=== PATIENT | female | born 1940 | race Caucasian/White ===

== ENCOUNTER 2016-08-30 08:55 | Inpatient (IN) | payer MEDICARE ==
[2016-08-30] VITALS (17 sets, daily range): BP systolic 81–132; BP diastolic 38–85; PULSE 82–116; RESP 18–24; TEMP 97.2–98.9; O2SAT 95–100
[~2016-08-30] VITALS: Ht 154.9 cm; Wt 104.7 kg
[~2016-08-30 08:55] MED LIST: CIPR500T4 PO
[2016-08-30] MEDS ORDERED: SODIUM CHLOR 0.9% 1000 ML INJ 1,000 ML IV SCH (09:07)
[2016-08-30] MEDS ORDERED: SODIUM CHLORIDE 0.9% FLUSH 5 ML FLUSH IVF PRN (09:15)
[2016-08-30] MEDS ORDERED: PANTOPRAZOLE INJ 80 MG in SODIUM CHLORIDE 0.9% INJ 35 ML IV ONE (09:15)
[2016-08-30] MEDS ORDERED: SODIUM CHLOR 0.9% 1000 ML INJ 1,000 ML IV ONE (09:15)
--- NOTE | 2016-08-30 09:22 | PD ---
HPI . Black tarry stools Chief Complaint: GI Complaint Time Seen by Provider: 09:07 Travel History International Travel<30 days: No Contact w/Intl Traveler<30days: No Traveled to known affect area: No History of Present Illness HPI Patient presents with the chief complaint of black tarry stools. She states that she had one black tarry stool couple days ago. She had no further abnormal bowel movements for the next day or so. However, she has been feeling weak. She does report some abdominal pain which has subsequently resolved. She reports about 3 black tarry stools today area she feels very weak. She has not had any vomiting/hematemesis. She denies any previous similar episode. She states that she does not take any prescription medications. Specifically, she is not on an anticoagulant. She does take Aleve as needed for knee pain. PFSH Past Medical History Hx Anticoagulant Therapy: Yes (aleve for knee pain) Diminished Hearing: No Immunizations Current: No Influenza Vaccination: No Menopausal: Yes Past Surgical History Abdominal Surgery: Yes (polyp removal November 2015) Tonsillectomy: Yes Social History Alcohol Use: No Tobacco Use: No Substance Use: No Allergies-Medications (Allergen,Severity, Reaction): Coded Allergies: No Known Allergies (Unverified , 08/30/16) Reported Meds & Prescriptions Reported Meds & Active Scripts Active No Active Prescriptions or Reported Medications Review of Systems Except as stated in HPI: all other systems reviewed are Neg General / Constitutional: No: Fever, Chills Gastrointestinal: Positive: Abdominal Pain, Other (dark tarry stools), No: Nausea, Vomiting, Diarrhea Neurologic: Positive: Weakness Physical Exam Narrative GENERAL: Patient is pale with a resting heart rate of 120 and blood pressure of 83/60 SKIN: Warm and dry. The perianal area is stained with black tarry fecal matter. HEAD: Atraumatic. Normocephalic. EYES: Pupils equal and round. Conjunctiva pale ENT: No nasal bleeding or discharge. Mucous membranes pale and moist. NECK: Trachea midline. Neck is supple. CARDIOVASCULAR: Regular rate and rhythm. Sinus tachycardia. RESPIRATORY: No accessory muscle use. GASTROINTESTINAL: Abdomen soft, non-tender, nondistended. MUSCULOSKELETAL: No obvious deformities. No edema. NEUROLOGICAL: Awake and alert. No obvious cranial nerve deficits. Motor grossly within normal limits. Normal speech. PSYCHIATRIC: Appropriate mood and affect; insight and judgment normal. Data Data Last Documented VS Vital Signs Date Time Temp Pulse Resp B/P Pulse Ox O2 Delivery O2 Flow Rate FiO2 08/30/16 09:56 104 20 103/47 100 08/30/16 09:31 Nasal Cannula 2 08/30/16 09:00 98.3 Orders Complete Blood Count With Diff (08/30/16 09:07) Comprehensive Metabolic Panel (08/30/16 09:07) Prothrombin Time / Inr (Pt) (08/30/16 09:07) Act Partial Throm Time (Ptt) (08/30/16 09:07) Type And Screen (08/30/16 09:07) Ecg Monitoring (08/30/16 09:07) Iv Access Insert/Monitor (08/30/16 09:07) Oximetry (08/30/16 09:07) Oxygen Administration (08/30/16 09:07) Sodium Chlor 0.9% 1000 Ml Inj (Ns 1000 M (08/30/16 09:07) Pantoprazole Inj (Protonix Inj) (08/30/16 09:15) Sodium Chlor 0.9% 1000 Ml Inj (Ns 1000 M (08/30/16 09:15) Red Blood Cells (Rbc) (08/30/16 10:07) Blood Product Administration .UPON TRANSFUSION (08/30/16 10:07) Sodium Chlor 0.9% 250 Ml Inj (Ns 250 Ml (08/30/16 10:15) Diphenhydramine Inj (Benadryl Inj) (08/30/16 10:15) Acetaminophen (Tylenol) (08/30/16 10:15) Admit To Inpatient (08/30/16 ) Vital Signs (Adult) Q4H (08/30/16 10:06) Activity Oob Ad Therese (08/30/16 10:06) Intake + Output DREW.QSHIFT (08/30/16 10:06) Diet Liquid (08/30/16 Lunch) Sodium Chloride 0.9% Flush (Ns Flush) (08/30/16 10:15) Sodium Chloride 0.9% Flush (Ns Flush) (08/30/16 21:00) Sodium Chlor 0.9% 1000 Ml Inj (Ns 1000 M (08/30/16 10:06) Pantoprazole Inj (Protonix Inj) (08/30/16 12:00) Hgb & Hct (08/30/16 10:06) Hgb & Hct (08/30/16 16:06) Hgb & Hct (08/30/16 22:06) Hgb & Hct (08/31/16 04:06) Hgb & Hct (08/31/16 10:06) Hgb & Hct (08/31/16 16:06) Hgb & Hct (08/31/16 22:06) Inpatient Certification (08/30/16 ) Acetaminophen (Tylenol) (08/30/16 10:15) Ondansetron Inj (Zofran Inj) (08/30/16 10:15) Basic Metabolic Panel (Bmp) (08/31/16 06:00) Pt Request For Service (08/30/16 10:06) Scd Bilateral/Knee High DREW.BID (08/30/16 10:06) Naloxone Inj (Narcan Inj) (08/30/16 10:15) Labs Laboratory Tests Test 08/30/16 09:05 White Blood Count 13.6 TH/MM3 Red Blood Count 3.43 MIL/MM3 Hemoglobin 8.9 GM/DL Hematocrit 26.9 % Mean Corpuscular Volume 78.4 FL Mean Corpuscular Hemoglobin 25.8 PG Mean Corpuscular Hemoglobin 32.9 % Concent Red Cell Distribution Width 14.5 % Platelet Count 281 TH/MM3 Mean Platelet Volume 9.8 FL Neutrophils (%) (Auto) 77.3 % Lymphocytes (%) (Auto) 18.3 % Monocytes (%) (Auto) 3.9 % Eosinophils (%) (Auto) 0.2 % Basophils (%) (Auto) 0.3 % Neutrophils # (Auto) 10.6 TH/MM3 Lymphocytes # (Auto) 2.5 TH/MM3 Monocytes # (Auto) 0.5 TH/MM3 Eosinophils # (Auto) 0.0 TH/MM3 Basophils # (Auto) 0.0 TH/MM3 CBC Comment DIFF FINAL Differential Comment Prothrombin Time 11.5 SEC Prothromb Time International 1.0 RATIO Ratio Activated Partial 23.8 SEC Thromboplast Time Sodium Level 141 MEQ/L Potassium Level 5.0 MEQ/L Chloride Level 108 MEQ/L Carbon Dioxide Level 22.7 MEQ/L Anion Gap 10 MEQ/L Blood Urea Nitrogen 84 MG/DL Creatinine 1.10 MG/DL Estimat Glomerular Filtration 48 ML/MIN Rate Random Glucose 254 MG/DL Calcium Level 7.5 MG/DL Total Bilirubin 0.3 MG/DL Aspartate Amino Transf 9 U/L (AST/SGOT) Alanine Aminotransferase 16 U/L (ALT/SGPT) Alkaline Phosphatase 67 U/L Total Protein 5.6 GM/DL Albumin 2.8 GM/DL MDM Medical Decision Making Medical Screen Exam Complete: Yes Emergency Medical Condition: Yes Medical Record Reviewed: Yes (the patient's only visit with us was for postmenopausal vaginal bleeding. The patient reports that she did follow up as an outpatient for this problem. She states that she was found to have a benign polyp which was removed in the office.) Differential Diagnosis Differential diagnosis of weakness includes but is not limited to infection, CVA , electrolyte disturbance, renal failure, hypoglycemia, UTI, ACS, acute blood loss Narrative Course Patient presents to us via [facility] with the chief complaint of weakness and dark tarry stools. The patient is pale with an initial heart rate of about 120 and blood pressure of 83/60. I have ordered a fluid bolus 2 L, Protonix drip, type and screen, CBC and comp metabolic panel. CBC & BMP Diagram 08/30/16 09:05 Previous hemoglobin was 11. Critical Care Narrative Aggregate critical care time was 40 minutes. Time to perform other separately billable procedures was not included in the critical care time. My time did not include minutes spent treating any other patients simultaneously or on activities that did not directly contribute to the patient's treatment. The services I provided to this patient were to treat and/or prevent clinically significant deterioration due to GI bleed with hemorrhagic shock. I provided critical care services requiring my management, as noted below: Chart data review, documentation time, medication orders and management, vital sign assessments/reviewing monitor data, ordering and reviewing lab tests, ordering and interpreting/reviewing x-rays and diagnostic studies, care of the patient and discussion of the patient with the admitting physicians HemaPrompt Point of Care Internal Pos. & Neg. Controls: Passed Fecal Specimen Occult Blood: Positive Physician Communication Physician Communication Dr. Gomez requests that I go ahead and transfuse her 2 units because of symptomatic bleeding (tachycardia/hypotension). She also asks that I contact GI regarding where to admit her (here or at [facility]). Dr. Olivera asked that I send the patient to [facility] and consult Dr. Eller there. Diagnosis Primary Impression: Lower GI bleeding Admitting Information Admitting Physician Requests: Admit Scripts No Active Prescriptions or Reported Meds Condition: Radha Lange MD Aug 30, 2016 09:22
[2016-08-30 09:24] LABS: AUTOMATED NEUTROPHIL # 10.6 TH/MM3 (1.8-7.7); BASOPHIL % 0.3 % (0.0-2.0); EOSINOPHIL % 0.2 % (0.0-4.0); HEMATOCRIT 26.9 % (35.0-46.0); HEMO FLAGS DIFF FINAL; LYMPH % 18.3 % (9.0-44.0); LYMPHOCYTE # 2.5 TH/MM3 (1.0-4.8); MEAN CELL VOLUME 78.4 FL (80.0-100.0); MEAN CORPUSCULAR HEMOGLOBIN 25.8 PG (27.0-34.0); MEAN CORPUSCULAR HGB CONC 32.9 % (32.0-36.0); MONO % 3.9 % (0.0-8.0); NEUT % 77.3 % (16.0-70.0); PLATELET COUNT 281 TH/MM3 (150-450); RED BLOOD COUNT 3.43 MIL/MM3 (4.00-5.30); RED CELL DISTRIBUTION WIDTH 14.5 % (11.6-17.2); WHITE BLOOD COUNT 13.6 TH/MM3 (4.0-11.0)
[2016-08-30 09:50] LABS: APTT (PATIENT) 23.8 SEC (24.3-30.1); BICARBONATE 22.7 MEQ/L (21.0-32.0); PROTHROMBIN TIME - PATIENT 11.5 SEC (9.8-11.6)
[2016-08-30 09:51] LABS: BLOOD UREA NITROGEN 84 MG/DL (7-18)
[2016-08-30 09:54] LABS: ALT (GPT) 16 U/L (10-53); AST (GOT) 9 U/L (15-37); GLOMERULAR FILTRATION RATE 48 ML/MIN (>89)
[2016-08-30 09:55] LABS: TOTAL BILIRUBIN ADULT 0.3 MG/DL (0.2-1.0)
[2016-08-30 09:56] LABS: ALKALINE PHOSPHATASE 67 U/L (45-117)
[2016-08-30 09:57] LABS: ANION GAP 10 MEQ/L (5-15); CHLORIDE 108 MEQ/L (98-107); SODIUM (NA) 141 MEQ/L (136-145)
[2016-08-30] MEDS ORDERED: ACETAMINOPHEN 325 MG TAB PO PRN (10:15)
[2016-08-30] MEDS ORDERED: ACETAMINOPHEN 325 MG TAB PO ONE (10:15)
[2016-08-30] MEDS ORDERED: SODIUM CHLORIDE 0.9% FLUSH 5 ML FLUSH FLUSH PRN (10:15)
[2016-08-30] MEDS ORDERED: SODIUM CHLOR 0.9% 250 ML INJ 250 ML IV ONE (10:15)
[2016-08-30] MEDS ORDERED: NALOXONE HCL 0.4 MG/ML AMP IV PRN (10:15)
[2016-08-30] MEDS ORDERED: diphenhydrAMINE HCL 50 MG/ML VIAL IV ONE (10:15)
[2016-08-30] MEDS ORDERED: ONDANSETRON HCL 4 MG/2 ML VIAL IVP PRN (10:15)
[2016-08-30 10:52] LABS: HEMATOCRIT 24.3 % (35.0-46.0); REVIEW FLAG FINAL
[2016-08-30] MEDS: SODIUM CHLOR 0.9% 1000 ML INJ 1,000 ML IV SCH ×2 (11:51→21:00)
[2016-08-30] MEDS: PANTOPRAZOLE INJ 80 MG in SODIUM CHLORIDE 0.9% INJ 100 ML IV SCH ×2 (11:55→22:00)
--- NOTE | 2016-08-30 12:35 | HHI.HP ---
[facility] Service [facility] Primary Care Physician No Primary Care Physician Admission Diagnosis lower GI bleed Diagnoses: Travel History International Travel<30 Days: No Contact w/Intl Traveler <30 Da: No Traveled to Known Affected Are: No History of Present Illness This is a pleasant 75-year-old female who does not follow with any physician with a [id number] history of tobacco use who presents to the ER with a three-day history of dark melanotic stools. The patient presented to the hospital today because she was feeling dizzy, and lightheaded. Alleviating factors include lying down. Provocative factors included standing up would make the dizziness worse. She states that today she had 3 dark tarry stools. Last night she vomited multiple times and it was dark liquid. She denies abdominal pain, weight loss, change in the caliber of her stools. She has chronic diarrhea. The patient denies any history of GI bleeding. She does take an Aleve daily for right knee pain. The patient has never had a colonoscopy. She has anxiety and does not see physicians because of this. In the ER she was initially hypotensive and tachycardic. She received 2 L normal saline IV bolus with improvement of vital signs. Hemoglobin is 7.9, because of the ongoing bleeding we are transfusing her 2 units packed red blood cells. The ER physician spoke with gastroenterology who was like the patient transferred to the main hospital to undergo endoscopy. The patient has also been started on a Protonix drip. The patient is apprehensive about undergoing endoscopy but is reassured that she will be provided with sedation. Review of Systems Constitutional: COMPLAINS OF: Dizziness, DENIES: Weight loss, Chills Endocrine: DENIES: Polydipsia, Polyuria Eyes: DENIES: Eye pain, Vision loss Ears, nose, mouth, throat: COMPLAINS OF: Hoarseness (chronic from smoking), DENIES: Odynophagia Respiratory: DENIES: Cough, Shortness of breath Cardiovascular: DENIES: Chest pain, Syncope Gastrointestinal: COMPLAINS OF: Black stools, Diarrhea (the patient states she has chronic diarrhea), Nausea, Vomiting, DENIES: Abdominal pain, Difficulty Swallowing Genitourinary: COMPLAINS OF: Urinary incontinence (chronic) Musculoskeletal: COMPLAINS OF: Joint pain (chronic right knee pain for which she refuses to consider surgery) Integumentary: DENIES: Rash, Breast masses Hematologic/lymphatic: DENIES: Lymphadenopathy Neurologic: DENIES: Abnormal gait, Localized weakness Psychiatric: COMPLAINS OF: Anxiety, DENIES: Confusion Past Family Social History Past Medical History Osteoarthritis of the right knee Chronic urinary incontinence Chronic pedal edema 60 pack year history of tobacco quit 5 years ago Past Surgical History None other than a polyp removal from her uterus Reported Medications Aleve daily Allergies: Coded Allergies: No Known Allergies (Unverified , 08/30/16) Family History Both of her parents and coronary artery disease and myocardial infarction Social History As per history of present illness. She is . No alcohol or drug use. Physical Exam Vital Signs Vital Signs Date Time Temp Pulse Resp B/P Pulse Ox O2 Delivery O2 Flow Rate FiO2 08/30/16 11:56 99 20 132/60 100 Nasal Cannula 2 08/30/16 11:06 95 18 111/70 95 Nasal Cannula 2 08/30/16 09:56 104 20 103/47 100 08/30/16 09:31 Nasal Cannula 2 08/30/16 09:14 97 08/30/16 09:00 98.3 116 20 90/60 97 Physical Exam GENERAL: Well-nourished, well-developed very pleasant elderly obese female patient. SKIN: Warm and dry. HEAD: Normocephalic. EYES: No scleral icterus. No injection or drainage. NECK: Supple, trachea midline. No JVD or lymphadenopathy. CARDIOVASCULAR: Regular rate and rhythm without murmurs, gallops, or rubs. RESPIRATORY: Breath sounds equal and clear to auscultation bilaterally. No accessory muscle use. GASTROINTESTINAL: Abdomen soft, non-tender, nondistended. EXTREMITIES: Trace to 1+ pitting pedal edema bilaterally of the ankles left slightly more than right. NEUROLOGICAL: Awake, alert, and oriented x 3. Non-focal. Hoarse voice noted. Laboratory Laboratory Tests Test 08/30/16 08/30/16 08/30/16 09:05 10:07 10:45 White Blood Count 13.6 Red Blood Count 3.43 Hemoglobin 8.9 7.9 Hematocrit 26.9 24.3 Mean Corpuscular Volume 78.4 Mean Corpuscular Hemoglobin 25.8 Mean Corpuscular Hemoglobin 32.9 Concent Red Cell Distribution Width 14.5 Platelet Count 281 Mean Platelet Volume 9.8 Neutrophils (%) (Auto) 77.3 Lymphocytes (%) (Auto) 18.3 Monocytes (%) (Auto) 3.9 Eosinophils (%) (Auto) 0.2 Basophils (%) (Auto) 0.3 Neutrophils # (Auto) 10.6 Lymphocytes # (Auto) 2.5 Monocytes # (Auto) 0.5 Eosinophils # (Auto) 0.0 Basophils # (Auto) 0.0 CBC Comment DIFF FINAL Differential Comment Prothrombin Time 11.5 Prothromb Time International 1.0 Ratio Activated Partial 23.8 Thromboplast Time Sodium Level 141 Potassium Level 5.0 Chloride Level 108 Carbon Dioxide Level 22.7 Anion Gap 10 Blood Urea Nitrogen 84 Creatinine 1.10 Estimat Glomerular Filtration 48 Rate Random Glucose 254 Calcium Level 7.5 Total Bilirubin 0.3 Aspartate Amino Transf 9 (AST/SGOT) Alanine Aminotransferase 16 (ALT/SGPT) Alkaline Phosphatase 67 Total Protein 5.6 Albumin 2.8 Blood Type B POSITIVE B POSITIVE Antibody Screen NEGATIVE Blood Bank Comment Crossmatch Leukocyte-Reduced Red Blood Cells Result Diagram: 08/30/16 1045 08/30/16 0905 Assessment and Plan Problem List: (1) GI bleed ICD Code: K92.2 Status: Acute (2) Anemia associated with acute blood loss ICD Code: D62 Status: Acute (3) CL (acute kidney injury) ICD Code: N17.9 Status: Acute (4) Hypotension due to blood loss ICD Code: I95.89 Status: Acute (5) Anxiety ICD Code: F41.9 Status: Acute (6) Tobacco abuse, 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 GI is consulted and plans endoscopy. -Hypertension and tachycardia secondary to the acute GI bleed. Improved with IV fluid resuscitation. We will transfuse 2 units packed blood bus also above and continue normal saline at a rate of 100 mL per hour. Clear liquid diet for now. I will obtain a preprocedure EKG. -Hyperglycemia. The patient does not follow with primary care physician regularly. She may have diabetes. Will start Accu-Cheks and obtain a hemoglobin A1c. -Osteoarthritis of the right knee - Tylenol as needed for pain. Advised patient she will likely need to stop taking Aleve. -Chronic urinary incontinence -Chronic pedal edema - apply ROSALINDA perdomo and SCDs. -60 pack year history of tobacco quit 5 years ago -Mild acute kidney injury secondary to volume depletion. We'll continue with IV fluids as above and repeat a BMP in the morning. -We'll consult case management to assist the patient in finding a primary care physician. I explained the importance of preventive care to the patient as well as establishing with a PCP. -DVT prophylaxis with SCDs. Discussed Condition With ED physician. Patient and her at bedside. Milana Gomez MD Aug 30, 2016 12:35
[2016-08-30 17:31] LABS: HEMATOCRIT 30.6 % (35.0-46.0); REVIEW FLAG FINAL
[2016-08-30] MEDS: SODIUM CHLORIDE 0.9% FLUSH 5 ML FLUSH FLUSH SCH (21:00)
[2016-08-30 23:27] LABS: HEMATOCRIT 28.4 % (35.0-46.0); REVIEW FLAG FINAL
[2016-08-31] VITALS (7 sets, daily range): BP systolic 96–120; BP diastolic 54–68; PULSE 70–90; RESP 18–22; TEMP 97.1–98.8; O2SAT 94–99
[2016-08-31 05:51] LABS: HEMATOCRIT 27.1 % (35.0-46.0); REVIEW FLAG FINAL
[2016-08-31 06:07] LABS: BICARBONATE 26.1 MEQ/L (21.0-32.0); POTASSIUM 4.1 MEQ/L (3.5-5.1)
[2016-08-31] MEDS: SODIUM CHLOR 0.9% 1000 ML INJ 1,000 ML IV SCH (06:07)
[2016-08-31] MEDS: PANTOPRAZOLE INJ 80 MG in SODIUM CHLORIDE 0.9% INJ 100 ML IV SCH (08:00)
[2016-08-31] MEDS: SODIUM CHLORIDE 0.9% FLUSH 5 ML FLUSH FLUSH SCH ×2 (08:06→20:24)
--- NOTE | 2016-08-31 08:35 | PD.CONS ---
HPI History of Present Illness This is a 75 year old female who came to the emergency room for evaluation of black tarry stools. She reports that her symptoms began about 2 days ago. She was in her normal state of health and then started having black tarry stools with several bowel movements per day. There were no aggravating or alleviating factors. She denies any associated nausea, vomiting, abdominal pain, heartburn , reflux, decreased appetite, weight loss, constipation, or red blood in her stools. She does have a history of chronic knee pain for which she takes Aleve 2 pills per day for many years. She occasionally drinks alcohol and reports that she did have a glass the night that the bleeding started. She denies any history of peptic ulcer disease and has never been evaluated with an EGD or colonoscopy. She denies any family history of esophageal, gastric, colorectal cancer. (Meena Fernández) PFSH Past Medical History Osteoarthritis of the right knee Chronic urinary incontinence Chronic pedal edema Past Surgical History Procedure to remove polyp from uterus (Meena Fernández) Coded Allergies: No Known Allergies (Unverified , 08/30/16) Medications Allergies Coded Allergies Type Severity Reaction Last Updated Verified No Known Allergies 08/30/16 No Active Scripts Medications Dose Route/Sig Days Date Category No Active Prescriptions or Reported Medications Rx Aleve 2 pills per day Family History Both parents from coronary artery disease Social History [id number] smoking history, quit 5 years ago Occasional alcohol use (Meena Fernández) Review of Systems Constitutional: COMPLAINS OF: Fatigue, DENIES: Fever, Chills, Change in appetite Respiratory: DENIES: Cough Cardiovascular: COMPLAINS OF: Lower Extremity Edema, DENIES: Chest pain Gastrointestinal: COMPLAINS OF: Black stools, Diarrhea, DENIES: Abdominal pain , Bloody stools, Constipation, Nausea, Vomiting, Anorexia, Swelling of Abdomen, Heartburn, Hematemesis Musculoskeletal: COMPLAINS OF: Joint pain Integumentary: DENIES: Rash Hematologic/lymphatic: DENIES: Bruising Neurologic: DENIES: Headache Psychiatric: DENIES: Confusion (Meena Fernández) GI Exam Vitals I&O Vital Signs Date Time Temp Pulse Resp B/P Pulse Ox O2 Delivery O2 Flow Rate FiO2 08/31/16 08:00 98.0 80 20 98/54 99 08/31/16 04:00 98.8 83 18 111/57 99 08/31/16 00:00 98.7 90 22 113/61 94 08/30/16 20:00 97.2 82 24 122/85 100 08/30/16 17:53 90 18 123/64 100 08/30/16 17:15 98.3 92 20 123/64 100 08/30/16 16:54 90 18 116/71 95 08/30/16 16:02 98.9 92 18 113/55 100 08/30/16 15:47 97.9 97 18 119/56 100 08/30/16 15:27 98.4 95 18 96/46 100 08/30/16 15:13 91 18 81/46 100 Nasal Cannula 2 08/30/16 14:14 94 18 102/54 100 08/30/16 13:15 98.2 97 18 83/69 100 08/30/16 12:57 97.9 101 22 98/38 Nasal Cannula 2 08/30/16 12:20 98.5 94 20 123/55 97 Nasal Cannula 2 08/30/16 11:56 99 20 132/60 100 Nasal Cannula 2 08/30/16 11:06 95 18 111/70 95 Nasal Cannula 2 08/30/16 09:56 104 20 103/47 100 08/30/16 09:31 Nasal Cannula 2 08/30/16 09:14 97 08/30/16 09:00 98.3 116 20 90/60 97 I/O 08/30/16 08/30/16 08/30/16 08/31/16 08/31/16 08/31/16 07:00 15:00 23:00 07:00 15:00 23:00 Intake Total 662 ml Balance 662 ml Intake Packed Cells 662 ml Laboratory Test 08/30/16 08/30/16 08/30/16 08/30/16 09:05 10:07 10:45 17:25 White Blood Count 13.6 TH/MM3 Red Blood Count 3.43 MIL/MM3 Hemoglobin 8.9 GM/DL 7.9 GM/DL 10.1 GM/DL Hematocrit 26.9 % 24.3 % 30.6 % Mean Corpuscular Volume 78.4 FL Mean Corpuscular Hemoglobin 25.8 PG Mean Corpuscular Hemoglobin 32.9 % Concent Red Cell Distribution Width 14.5 % Platelet Count 281 TH/MM3 Mean Platelet Volume 9.8 FL Neutrophils (%) (Auto) 77.3 % Lymphocytes (%) (Auto) 18.3 % Monocytes (%) (Auto) 3.9 % Eosinophils (%) (Auto) 0.2 % Basophils (%) (Auto) 0.3 % Neutrophils # (Auto) 10.6 TH/MM3 Lymphocytes # (Auto) 2.5 TH/MM3 Monocytes # (Auto) 0.5 TH/MM3 Eosinophils # (Auto) 0.0 TH/MM3 Basophils # (Auto) 0.0 TH/MM3 CBC Comment DIFF FINAL Differential Comment Prothrombin Time 11.5 SEC Prothromb Time International 1.0 RATIO Ratio Activated Partial 23.8 SEC Thromboplast Time Sodium Level 141 MEQ/L Potassium Level 5.0 MEQ/L Chloride Level 108 MEQ/L Carbon Dioxide Level 22.7 MEQ/L Anion Gap 10 MEQ/L Blood Urea Nitrogen 84 MG/DL Creatinine 1.10 MG/DL Estimat Glomerular Filtration 48 ML/MIN Rate Random Glucose 254 MG/DL Calcium Level 7.5 MG/DL Total Bilirubin 0.3 MG/DL Aspartate Amino Transf 9 U/L (AST/SGOT) Alanine Aminotransferase 16 U/L (ALT/SGPT) Alkaline Phosphatase 67 U/L Total Protein 5.6 GM/DL Albumin 2.8 GM/DL Blood Type B POSITIVE B POSITIVE Antibody Screen NEGATIVE Blood Bank Comment Crossmatch Leukocyte-Reduced Red Blood Cells Test 08/30/16 08/31/16 23:07 05:10 Hemoglobin 9.4 GM/DL 9.2 GM/DL Hematocrit 28.4 % 27.1 % Sodium Level 146 MEQ/L Potassium Level 4.1 MEQ/L Chloride Level 113 MEQ/L Carbon Dioxide Level 26.1 MEQ/L Anion Gap 7 MEQ/L Blood Urea Nitrogen 48 MG/DL Creatinine 0.77 MG/DL Estimat Glomerular Filtration 73 ML/MIN Rate Random Glucose 115 MG/DL Calcium Level 7.5 MG/DL Physical Examination HEENT: Normocephalic; atraumatic; no jaundice. CHEST: CTA CARDIAC: RRR ABDOMEN: Soft, nondistended, nontender; no hepatosplenomegaly; bowel sounds are present in all four quadrants. EXTREMITIES: BLE edema. SKIN: Normal; no rash; no jaundice. [employer]AF[employer] INSPECTOR: No focal deficits; alert and oriented times three. (Meena Fernández) Assessment and Plan Plan ASSESSMENT: - Upper GI bleeding, melena 2 days. Patient has chronic knee pain and takes Aleve, 2 pills per day. Occasional ETOH use. Symptoms began 2 days ago and she denies any other associated symptoms. No hx of PUD and has never been evaluated with EGD/colonoscopy. H&H was 8.9/26.9 on admission with MCV 78.4 and MCHC 32.9. She was given 2 units of packed red blood cells and her H&H is currently 9.2/27.1 - Anemia, acute blood loss. Status post 2 units PRBC. HH 9.2/.1. - CL, improved. - Elevated glucose, hypernatremia, chronic knee pain. Per primary PLAN: - Plan for egd today - Obtain consents - NPO - Protonix Gtt - Monitor hh - Transfuse as necessary - Supportive care - Further recommendations to follow based on results of above - Pt seen and examined by Dr. Eller and myself and this note is written on his behalf (Meena Fernández) Physician Comments Patient seen and examined Agree with above Continue with current supportive care Monitor labs EGD today (Herrera Eller MD) Meena Fernández Aug 31, 2016 08:35 Herrera Eller MD Aug 31, 2016 13:53
[2016-08-31] MEDS: SODIUM CHLOR 0.45% 1000 ML INJ 1,000 ML IV SCH ×2 (08:49→14:50)
[2016-08-31 11:45] LABS: HEMATOCRIT 26.8 % (35.0-46.0); REVIEW FLAG FINAL
--- NOTE | 2016-08-31 12:56 | HHI.PR ---
Subjective Remarks The patient says she has not had any further bowel movements. She does not describe any abdominal pain. She is anticipating the endoscopy. Family at the bedside. Their questions were answered. Objective Vitals Vital Signs Date Time Temp Pulse Resp B/P Pulse Ox O2 Delivery O2 Flow Rate FiO2 08/31/16 12:00 97.1 71 19 96/68 96 08/31/16 08:00 98.0 80 20 98/54 99 08/31/16 04:00 98.8 83 18 111/57 99 08/31/16 00:00 98.7 90 22 113/61 94 08/30/16 20:00 97.2 82 24 122/85 100 08/30/16 17:53 90 18 123/64 100 08/30/16 17:15 98.3 92 20 123/64 100 08/30/16 16:54 90 18 116/71 95 08/30/16 16:02 98.9 92 18 113/55 100 08/30/16 15:47 97.9 97 18 119/56 100 08/30/16 15:27 98.4 95 18 96/46 100 08/30/16 15:13 91 18 81/46 100 Nasal Cannula 2 08/30/16 14:14 94 18 102/54 100 08/30/16 13:15 98.2 97 18 83/69 100 08/30/16 12:57 97.9 101 22 98/38 Nasal Cannula 2 I/O 08/30/16 08/30/16 08/30/16 08/31/16 08/31/16 08/31/16 07:00 15:00 23:00 07:00 15:00 23:00 Intake Total 662 ml Balance 662 ml Intake Packed Cells 662 ml Result Diagram: 08/31/16 1118 08/31/16 0510 Objective Remarks GENERAL: Well-nourished, well-developed patient in no apparent distress. SKIN: Warm and dry. HEAD: Normocephalic. EYES: No scleral icterus. No injection or drainage. NECK: Supple, trachea midline. No JVD or lymphadenopathy. CARDIOVASCULAR: Regular rate and rhythm. Grade 1 systolic murmur appreciated. RESPIRATORY: Breath sounds equal and clear to auscultation bilaterally. No accessory muscle use. GASTROINTESTINAL: Abdomen soft, non-tender, nondistended. No guarding or rebound. EXTREMITIES: 1+ pitting edema bilaterally, left slightly more than right. No tenderness to palpation. NEUROLOGICAL: Awake, alert, and oriented x 3. Non-focal. PSYCH: Mood and affect appropriate. Medications and IVs Current Medications Medications (Trade) Dose Ordered Sig/Dean Route Start Time Stop Time Status Last Admin (NS Flush) 2 ml UNSCH PRN FLUSH 08/30/16 10:15 08/30/16 12:24 IV Flush 2 ml 2 ml BID FLUSH 08/30/16 21:00 08/30/16 21:00 (Protonix Inj/NS Inj) 100 ml @ 10 mls/hr Q10H IV 08/30/16 12:00 08/30/16 11:55 (Tylenol) 650 mg Q4H PRN PO 08/30/16 10:15 (Zofran Inj) 4 mg Q6H PRN IVP 08/30/16 10:15 Naloxone HCl 0.4 mg 0.4 mg UNSCH PRN IV 08/30/16 10:15 (1/2 NS 1000 ml Inj) 1,000 ml @ 100 mls/hr Q10H IV 08/31/16 09:00 08/31/16 08:49 A/P Problem List: (1) GI bleed ICD Code: K92.2 Status: Acute (2) Anemia associated with acute blood loss ICD Code: D62 Status: Acute (3) CL (acute kidney injury) ICD Code: N17.9 Status: Acute (4) Hypotension due to blood loss ICD Code: I95.89 Status: Acute (5) Anxiety ICD Code: F41.9 Status: Acute (6) Tobacco abuse, 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 She was transfused 2 units of packed red blood cells. H&H has been stable. GI consult appreciated. - continue Protonix drip. - GI planning on endoscopy today. - follow CBC and transfuse as needed. - IVFs. Hypotension Secondary to acute GI bleed. Improved with IV fluid resuscitation and blood products. - continue IVFs. - treatment as above. Hyperglycemia The patient does not follow with a primary care physician regularly. - Will start Accu-Cheks and obtain a hemoglobin A1c. Osteoarthritis of the right knee The pt takes Aleve as an outpt. - Tylenol as needed for pain. - d/c NSAIDs. Mild acute kidney injury Secondary to volume depletion in the setting of GIB. Improved with IVFs. - We'll continue with IV fluids. - avoid nephrotoxic agents. DVT prophylaxis: SCDs. Discharge Planning Awaiting endoscopy. Kayden Ruiz DO Aug 31, 2016 12:56
[2016-08-31] MEDS ORDERED: PROPOFOL 200 MG/20 ML AMP IV ONE (13:57)
[2016-08-31] MEDS ORDERED: DO NOT ADM ANY ANTICOAGULANT DRUGS XX PRN (14:10)
--- NOTE | 2016-08-31 14:10 | PD.PROCEDR ---
GI Procedure REFERRING PHYSICIAN Dr. Ruiz PROCEDURE PERFORMED EGD with biopsy INDICATION FOR PROCEDURE GI bleed melena and anemia PROCEDURE: The procedure, risks and benefits were discussed with Ms. Dee and informed consent was obtained. Anesthesia sedated her with Diprivan. She was placed in the left lateral decubitus position. EGD: The Pentax videoscope was introduced through the oropharynx and advanced to the second portion of the duodenum under direct visualization. Retroflexion was performed in the stomach. FINDINGS: The esophagus this was normal The stomach there was a small hiatal hernia there was also a small superficial clean-based antral ulcer no visible vessel this was biopsied the rest of the gastric mucosa was unremarkable The duodenum this was normal ESTIMATED BLOOD LOSS: None SPECIMENS REMOVED: Antral COMPLICATIONS: None IMPRESSION: Small hiatal hernia Gastric ulcer PLAN: Await biopsy Continue PPI Avoid NSAIDs and aspirin Advanced diet Patient may be discharged from a GI standpoint Follow-up with GI post discharge EGD in 2 months to follow-up on gastric ulcer Herrera Eller MD Aug 31, 2016 14:10
[2016-08-31] MEDS: PANTOPRAZOLE SOD 40 MG DELAYED RELEASE TAB PO SCH ×2 (14:50→20:24)
[2016-08-31 19:42] LABS: HEMATOCRIT 27.6 % (35.0-46.0); REVIEW FLAG FINAL
[2016-09-01 00:16] VITALS: BP 96/60; PULSE 83; RESP 18; TEMP 98.2; O2SAT 97
[2016-09-01 01:50] LABS: HEMATOCRIT 25.2 % (35.0-46.0); REVIEW FLAG FINAL
[2016-09-01 04:03] VITALS: BP 98/56; PULSE 89; RESP 18; TEMP 97.3; O2SAT 99
[2016-09-01] MEDS: SODIUM CHLOR 0.45% 1000 ML INJ 1,000 ML IV SCH (05:00)
[2016-09-01] MEDS: PANTOPRAZOLE SOD 40 MG DELAYED RELEASE TAB PO SCH (07:36)
[2016-09-01] MEDS: SODIUM CHLORIDE 0.9% FLUSH 5 ML FLUSH FLUSH SCH (07:37)
[2016-09-01 08:00] VITALS: BP 110/53; PULSE 87; RESP 20; TEMP 97; O2SAT 98
[2016-09-01 10:12] VITALS: O2SAT 97
[2016-09-01 10:15] LABS: AUTOMATED NEUTROPHIL # 4.9 TH/MM3 (1.8-7.7); BASOPHIL % 0.7 % (0.0-2.0); EOSINOPHIL # 0.2 TH/MM3 (0-0.4); EOSINOPHIL % 2.3 % (0.0-4.0); HEMATOCRIT 28.5 % (35.0-46.0); HEMO FLAGS DIFF FINAL; LYMPH % 22.4 % (9.0-44.0); LYMPHOCYTE # 1.6 TH/MM3 (1.0-4.8); MEAN CORPUSCULAR HEMOGLOBIN 28.3 PG (27.0-34.0); MEAN CORPUSCULAR HGB CONC 32.8 % (32.0-36.0); MONO % 7.8 % (0.0-8.0); NEUT % 66.8 % (16.0-70.0); PLATELET COUNT 178 TH/MM3 (150-450); RED BLOOD COUNT 3.31 MIL/MM3 (4.00-5.30); RED CELL DISTRIBUTION WIDTH 17.4 % (11.6-17.2); WHITE BLOOD COUNT 7.3 TH/MM3 (4.0-11.0)
[2016-09-01] MEDS ORDERED: PANT40TA3 PO (10:24)
--- NOTE | 2016-09-01 10:26 | HHI.DCPOC ---
Discharge Care Plan Diagnosis: (1) GI bleed (2) Anemia associated with acute blood loss (3) Hypotension due to blood loss (4) Hyperglycemia Goals to Promote Your Health * To prevent worsening of your condition and complications * To maintain your health at the optimal level Directions to Meet Your Goals Take your medications as prescribed Follow your dietary instruction Follow activity as directed Keep your appointments as scheduled Take your immunizations and boosters as scheduled If your symptoms worsen call your PCP, if no PCP go to Urgent Care Center or Emergency Room Smoking is Dangerous to Your Health. Avoid second hand smoke Call the 24-hour hour crisis hotline for domestic abuse at Kayden Ruiz DO Sep 01, 2016 10:26
--- NOTE | 2016-09-01 10:26 | HHI.FF ---
Face to Face Verification Diagnosis: (1) Hypotension due to blood loss (2) Anemia associated with acute blood loss (3) GI bleed (4) Hyperglycemia Physical Therapy Order: Evaluate and Treat, Improve ambulation, Strength and gait training Home Health Nursing Order: Medical education Signs/symptoms of disease process Nursing assessment with vital signs I have seen patient Sruthi Dee on 09/01/16. My clinical findings support the need for the requested home health care services because: Ltd mobility - disease progression Deconditioned w/ increased weakness I certify that my clinical findings support that this patient is homebound because: Unsteady gait/balance Kayden Ruiz DO Sep 01, 2016 10:25
[2016-09-01 10:32] LABS: POTASSIUM 3.5 MEQ/L (3.5-5.1)
[2016-09-01] MEDS ORDERED: POTASSIUM CHLORIDE 20 MEQ CONTROLLED RELEASE TAB PO ONE (11:00)
--- NOTE | 2016-09-01 11:14 | HHI.DS ---
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 The patient presented to the hospital today because she was feeling dizzy, and lightheaded. Alleviating factors include lying down. Provocative factors included standing up would make the dizziness worse. She states that today she had 3 dark tarry stools. Last night she vomited multiple times and it was dark liquid. She denies abdominal pain, weight loss, change in the caliber of her stools. She has chronic diarrhea. The patient denies any history of GI bleeding. She does take an Aleve daily for right knee pain. The patient has never had a colonoscopy. She has anxiety and does not see physicians because of this. In the ER she was initially hypotensive and tachycardic. She received 2 L normal saline IV bolus with improvement of vital signs. Hemoglobin is 7.9, because of the ongoing bleeding we are transfusing her 2 units packed red blood cells. The ER physician spoke with gastroenterology who was like the patient transferred to the main hospital to undergo endoscopy. The patient has also been started on a Protonix drip. The patient is apprehensive about undergoing endoscopy but is reassured that she will be provided with sedation. CBC/BMP: 09/01/16 0929 09/01/16 0929 Significant Findings Laboratory Tests Test 08/30/16 08/30/16 08/30/16 08/30/16 09:05 10:45 17:25 23:07 White Blood Count 13.6 TH/MM3 (4.0-11.0) Red Blood Count 3.43 MIL/MM3 (4.00-5.30) Hemoglobin 8.9 GM/DL 7.9 GM/DL 10.1 GM/DL 9.4 GM/DL (11.6-15.3) (11.6-15.3) (11.6-15.3) (11.6-15.3) Hematocrit 26.9 % 24.3 % 30.6 % 28.4 % (35.0-46.0) (35.0-46.0) (35.0-46.0) (35.0-46.0) Mean Corpuscular Volume 78.4 FL (80.0-100.0) Mean Corpuscular Hemoglobin 25.8 PG (27.0-34.0) Neutrophils (%) (Auto) 77.3 % (16.0-70.0) Neutrophils # (Auto) 10.6 TH/MM3 (1.8-7.7) Activated Partial 23.8 SEC Thromboplast Time (24.3-30.1) Chloride Level 108 MEQ/L (98-107) Blood Urea Nitrogen 84 MG/DL (7-18) Creatinine 1.10 MG/DL (0.50-1.00) Estimat Glomerular Filtration 48 ML/MIN (>89) Rate Random Glucose 254 MG/DL (74-106) Calcium Level 7.5 MG/DL (8.5-10.1) Aspartate Amino Transf 9 U/L (15-37) (AST/SGOT) Total Protein 5.6 GM/DL (6.4-8.2) Albumin 2.8 GM/DL (3.4-5.0) Test 08/31/16 08/31/16 08/31/16 09/01/16 05:10 11:18 18:45 01:20 Hemoglobin 9.2 GM/DL 9.2 GM/DL 9.4 GM/DL 8.5 GM/DL (11.6-15.3) (11.6-15.3) (11.6-15.3) (11.6-15.3) Hematocrit 27.1 % 26.8 % 27.6 % 25.2 % (35.0-46.0) (35.0-46.0) (35.0-46.0) (35.0-46.0) Sodium Level 146 MEQ/L (136-145) Chloride Level 113 MEQ/L (98-107) Blood Urea Nitrogen 48 MG/DL (7-18) Estimat Glomerular Filtration 73 ML/MIN (>89) Rate Random Glucose 115 MG/DL (74-106) Calcium Level 7.5 MG/DL (8.5-10.1) Test 09/01/16 09:29 Red Blood Count 3.31 MIL/MM3 (4.00-5.30) Hemoglobin 9.4 GM/DL (11.6-15.3) Hematocrit 28.5 % (35.0-46.0) Red Cell Distribution Width 17.4 % (11.6-17.2) Blood Urea Nitrogen 21 MG/DL (7-18) Estimat Glomerular Filtration 63 ML/MIN (>89) Rate Random Glucose 144 MG/DL (74-106) Calcium Level 8.0 MG/DL (8.5-10.1) PE at Discharge GENERAL: Well-nourished, well-developed patient in no apparent distress. SKIN: Warm and dry. HEAD: Normocephalic. EYES: No scleral icterus. No injection or drainage. NECK: Supple, trachea midline. No JVD or lymphadenopathy. CARDIOVASCULAR: Regular rate and rhythm. Grade 1 systolic murmur appreciated. RESPIRATORY: Breath sounds equal and clear to auscultation bilaterally. No accessory muscle use. GASTROINTESTINAL: Abdomen soft, non-tender, nondistended. No guarding or rebound. EXTREMITIES: 1+ pitting edema bilaterally, left slightly more than right. No tenderness to palpation. NEUROLOGICAL: Awake, alert, and oriented x 3. Non-focal. PSYCH: Mood and affect appropriate. Pt update on day of discharge The patient was resting comfortably in bed. Her family was at the bedside. Their questions were answered. The patient wanted to go home. She does say she eats a lot of sugar. She has bowel incontinence every once in a while. She wanted to know she could continue to take Aleve or not. Hospital Course Acute GI bleed She was transfused 2 units of packed red blood cells. H&H has been stable. GI was consulted. The pt received IVFs and was continued on a Protonix drip. Endoscopy revealed an antral ulcer that was nonbleeding. Her hemoglobin remained stable. She was cleared for discharge by GI. Her diet was advanced. She will continue a PPI and will follow up with GI as an outpt. Hypotension Improved with IV fluid resuscitation and blood products. She will follow up with her PCP. Hyperglycemia The patient does not follow with a primary care physician regularly. Hemoglobin A1c still pending. She will need to follow up with her PCP. Lifestyle changes recommended. Osteoarthritis of the right knee The pt takes Aleve as an outpt. We discussed how the pt is to avoid NSAIDs. She will take Tylenol as needed for pain. Mild acute kidney injury Improved with IVFs. Encourage PO intake. Pt Condition on Discharge: Stable Discharge Disposition: Disch w/ Home Health Serv Discharge Time: > 30 minutes Discharge Instructions DIET: Follow Instructions for: Heart Healthy Diet Activities you can perform: Weight Bearing as Coleman Follow up Referrals: Gastroenterology - 2 Weeks with Herrera Eller MD PCP Follow-up - 1 Week New Medications: Pantoprazole (Pantoprazole) 40 Mg Tab 40 MG PO Q12HR Ulcer #[id number] Kayden Whitney DO Sep 01, 2016 11:14
[2016-09-02 10:43] LABS: HEMOGLOBIN A1a 0.9 %; HEMOGLOBIN Ao 84.8 %; HEMOGLOBIN P3 5.3 %
== END 2016-09-01 12:30 | disposition home or self-care (01) | DRG 378 ==
LOC: PHED 08:55 → PHEDA 10:16 → PHEDH 14:22 → N05B 19:30
PROVIDERS: ADMIT Hospitalist; ATTEND Hospitalist
PROC: 30233N1 Transfusion of Nonautologous Red Blood Cells into Peripheral Vein, Percutaneous Approach (ICD-10-PCS; 2016-08-30)
PROC: 0DB68ZX Excision of Stomach, Via Natural or Artificial Opening Endoscopic, Diagnostic (ICD-10-PCS; principal; 2016-08-31 13:50)
DX: K25.4 Chronic or unspecified gastric ulcer with hemorrhage (principal); D62 Acute posthemorrhagic anemia; N17.9 Acute kidney failure, unspecified; E87.0 Hyperosmolality and hypernatremia; F41.9 Anxiety disorder, unspecified; R32 Unspecified urinary incontinence; M17.11 Unilateral primary osteoarthritis, right knee; R73.9 Hyperglycemia, unspecified; K44.9 Diaphragmatic hernia without obstruction or gangrene; Z87.891 Personal history of nicotine dependence
CPT/HCPCS: 36430; 80048; 80053; 83036; 85014; 85018; 85025; 85610; 85730; 86850; 86900; 86901; 86920; 88305; 88312; 96374; C9113; J1200; J7030; J7050; P9016